=== PATIENT | male | born 1985 | race Two or more races ===

== ENCOUNTER 2024-08-23 08:02 | Emergency (ER) | payer BC, SELFPAY ==
[2024-08-23 08:03] VITALS: BMI 31.4
[2024-08-23 08:15] VITALS: BP 141/90; PULSE 82; RESP 18; TEMP 36.9; O2SAT 95
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
== END 2024-08-23 09:35 | disposition home or self-care (01) ==
PROVIDERS: Emergency Provider Emergency Medicine
DX: S33.5XXA Sprain of ligaments of lumbar spine, initial encounter (principal); S83.91XA Sprain of unspecified site of right knee, initial encounter; V23.49XA Other motorcycle driver injured in collision with car, pick-up truck or van in traffic accident, initial encounter
CPT/HCPCS: 72100; 73562; 99283